=== PATIENT | female | born 1995 | race Caucasian/White ===

== ENCOUNTER 2019-02-03 20:14 | Emergency (ER) | payer OTHER, BC ==
[2019-02-03] MEDS: IBUPROFEN 800 MG TAB PO (21:59)
[2019-02-03] MEDS: ACETAMINOPHEN 500 MG TAB PO (22:00)
[2019-02-03] MEDS: IPRATROPIUM (NEB) 0.5 MG/2.5 ML AMP HHN (22:05)
[2019-02-03] MEDS: ALBUTEROL 0.083% (NEB) 2.5 MG/3 ML AMP HHN (22:05)
[2019-02-03] MEDS: DEXAMETHASONE 10 MG/ML 1 ML INJ IM (23:40)
== END 2019-02-03 23:42 | disposition home or self-care (01) ==
LOC: FTE 23:42
DX: J45.901 Unspecified asthma with (acute) exacerbation (principal); R05 Cough
CPT/HCPCS: 71045; 94664; 96372; 99284-25